=== PATIENT | female | born 1955 | race Caucasian/White ===

== ENCOUNTER 2023-11-07 20:07 | Emergency (ER) | payer OTHER, SELFPAY ==
[2023-11-07 20:10] VITALS: BP 170/90
--- NOTE | 2023-11-07 20:32 | ED.GENMED ---
History of Present Illness
General
Chief Complaint: Abdominal Pain
Source: patient
Exam Limitations: none
Time Seen by Provider: 11/07/23 20:31
Nursing documentation reviewed up to this point in time: agreed with
Travel History
Have you had any contact with someone who has COVID-19?: No
Do you have any symptoms of coronavirus? Fever > 100 degrees, chills, cough, shortness of breath, sore throat, loss of taste or smell, muscle aches, or headache?: No
History of Present Illness
History of Present Illness:
68-year-old female with history of HTN, hysterectomy, kidney donor, ruptured ectopic presents stating sudden onset mid abdominal pain while cleaning at home yesterday. The pain has been constant but waxes and wanes with spasms at times. The pain
is now 8/10. She is felt extremely nauseous with dry heaves. No diarrhea or constipation. She went to urgent care and they sent her here for evaluation.
She had negative COVID and flu at urgent care.
Review of Systems
Review of Systems
Allergies reviewed?: Yes
All Other Systems: ROS reviewed and negative except as documented in HPI and ROS
Constitutional: Denies fever
Respiratory: Denies trouble breathing
Cardiac: Denies chest pain
ABD/GI: Reports abdominal pain, nausea and anorexia; Denies vomiting or constipated
: Denies dysuria, frequency, flank pain, difficulty voiding or urgency
Musculoskeletal: Reports no symptoms
Skin: Reports no symptoms
Neurological: Reports no symptoms
Phy Exam
Physical Exam
Physical Exam:
GENERAL: No acute distress. A&Ox3.
CONSTITUTIONAL: Afebrile.
EYES: Clear, conjunctivae normal
ENMT: moist mucus membranes, Pharynx nl
RESPIRATORY: Regular respirations, nonlabored, lungs clear.
CARDIOVASCULAR: Regular rate and rhythm, no murmurs, no rubs.
GI: Soft, periumbilical tenderness to palpation, normal BS
MUSCULOSKELETAL: Moves with ease. Well perfused.
SKIN: Warm, dry, pink
PSYCH: Normal mood and affect. Well kept, interactive and appropriate
NEUROLOGIC: Awake, alert and oriented. No focal neurological deficits
Course
Orders/Labs/Results
Orders:
Orders
11/07/23 20:36
CT Abd/Pel (IV only)-[facility] only Urgent
Comment:
Reason For Exam: mid abdminal pain, nausea, retching
11/07/23 20:37
0.9% Sodium Chloride 1000 ml [Nss] 1,000 ml IV BOLUS
HYDROmorphone [Dilaudid] 1 mg IV NOW STA
Ondansetron Injectable [Zofran] 4 mg IV NOW STA
11/07/23 20:53
Complete Blood Count/With Diff Urgent
Comprehensive Metabolic Panel Urgent
Lipase Urgent
11/07/23 22:28
Urinalysis Reflex To Culture Urgent
Date Specimen was Collected: 11/07/23
Time Specimen was Collected: 20:47
Urine Microscopic Reflex Cult Urgent
11/07/23 23:03
Amoxicillin 875 mg/Clav 125 mg [Augmentin 875 mg/125 mg] 1 tablet PO NOW STA
Ketorolac [Toradol] 15 mg IV NOW STA
Ondansetron Injectable [Zofran] 4 mg IV NOW STA
Abnormal Lab Results
11/07/23 11/07/23
20:53 22:28
MCH 32.1 H pg
(27.0-31.0)
Absolute Neuts (auto) 8.5 H 10^3/uL
(1.4-6.5)
Absolute Monos (auto) 0.8 H 10^3/uL
(0.1-0.6)
Neutrophils % 80.9 H %
(42.2-75.2)
Lymphocytes % 11.1 L %
(20.5-51.1)
Glucose 127 H mg/dl
(70-99)
Urine Ketones 1+ A
(Negative)
Leukocyte Esterase Rfl Trace A
(Negative)
Urine Bacteria (Reflex) Few A
(Negative)
11/07/23 20:53
11/07/23 20:53
Vital Signs
Initial and Last Documented VS:
Initial Vital Signs
Temp Pulse Resp BP Pulse Ox
99.1 F 90 20 170/90 95
11/07/23 20:10 11/07/23 20:10 11/07/23 20:10 11/07/23 20:10 11/07/23 20:10
Last Documented Vital Signs
Temp Pulse Resp BP Pulse Ox
99.1 F 77 18 137/76 94
11/07/23 20:10 11/07/23 23:16 11/07/23 23:16 11/07/23 23:16 11/07/23 23:16
MDM/Problems Addressed
Differential Diagnosis Includes:
constipation, obstruction, diverticulitis, colitis, hernia
MDM/Problems Addressed:
68-year-old female with history of HTN, hysterectomy, kidney donor, ruptured ectopic presents stating sudden onset mid abdominal pain while cleaning at home yesterday. The pain has been constant but waxes and wanes with spasms at times. The pain
is now 8/10. She is felt extremely nauseous with dry heaves. No diarrhea or constipation. She went to urgent care and they sent her here for evaluation.
She had negative COVID and flu at urgent care.
Afebrle, NAD
11/07/2023 2201 PM
CBC normal
CMP normal
Lipase normal
UA normal
11/07/[address] abdomen pelvis with IV only contrast radiology report read: IMPRESSION: In the left posterior pelvis, CT findings compatible with diverticulitis involving the sigmoid colon. No evidence of abscess. No evidence of free intraperitoneal air.
Follow-up imaging with CT or colonoscopy after treatment is generally recommended to exclude underlying neoplasia, depending on recent colonoscopy history.
In the right lobe of the liver, low-density lesion which most likely represents hemangioma but is not completely characterized. Consider follow-up imaging with ultrasound of the abdomen with attention to the liver. Alternatively, CT or MRI of the
abdomen without and with contrast could be performed.
Bony degenerative changes as described.
Discussed findings with patient
Prescription for Augmentin sent to her pharmacy
Prescription for [place] and Zofran sent to her pharmacy
Referred to GI for follow-up
Pt ambulated out with normal gait upon discharge
*Critical Care Note
Total Time (30-74mins, 75-104mins- exclusive of procedures): Not Applicable
ED Attending Note
-
Portions of this chart may have been created with voice recognition software.� Occasional wrong word or��sound alike� substitutions may have occurred due to the inherent limitations of voice recognition software.
Discharge Plan
Departure
Patient Disposition: Home (Routine Discharge)
Date of Disposition: 11/07/23
Time of Disposition: 23:08
Patient with high blood pressure during this ER visit?: No
Condition: Good
Discharge Problem:
Diverticulitis
Instructions: Clear Liquid Diet, Diverticulitis (DC)
Prescriptions:
New
ondansetron 4 mg tablet,disintegrating
4 mg PO Q8H PRN (Reason: nausea and vomiting) 4 Days Qty: 10 0RF
amoxicillin-pot clavulanate 875-125 mg tablet
1 tab PO BID Qty: 19 0RF
hydrocodone-acetaminophen 5-325 mg tablet
1 tab PO Q6H PRN (Reason: Pain) Qty: 5 0RF
Referrals:
Álvaro Duncan MD [Active] - Next open appointment
Raciel Barron CRNP [Family Provider] -
Activity Restrictions/Additional Instructions:
As we discussed, you have diverticulitis. I sent a prescription to your pharmacy for Zofran for nausea, [place] for significant pain, and Augmentin antibiotic.
Call the GI doctors office Friday morning and make a follow-up appointment.
Return here immediately for worsening abdominal pain, bloody stools, fever above 100.5 or with shaking chills or feeling sicker in any way
You also have an incidental small lesion on the liver which is most likely nothing worrisome but the radiologist recommends a follow-up ultrasound or CAT scan or MRI of the abdomen, please discuss with your primary doctor.
Interventions
Interventions:
*Risk Screen - Suicide Last Done: 11/07/23 20:10
*General Assessment Last Done: 11/07/23 20:10
*Neglect/Abuse Screening Last Done: 11/07/23 20:10
ED- Fall Risk Assessment Last Done: 11/07/23 23:15
*ED COVID-19 Vaccine History Last Done: 11/07/23 23:15
*Nursing Disposition Last Done: 11/07/23 23:20
DX-Qdgvcb-Erwejzeezm Assessment Last Done: 11/07/23 21:05
Discharge Date and Time
Discharge Date/Time: 11/07/23 23:20
[2023-11-07] MEDS: ZOFRAN 4 MG IV ×2 (20:54→23:12)
[2023-11-07] MEDS: NSS 1000 IV (20:54)
[2023-11-07] MEDS: DILAUDID 1 MG IV (20:55)
[2023-11-07 21:05] LABS: % Basophils 0.3 % (0-2); % Eosinophils 0.1 % (0-6); % Immature Granulocytes 0.2 % (0-0.5); % Lymphocytes 11.1 % (20.5-51.1); % Monocytes 7.4 % (1.7-9.3); % Neutrophils 80.9 % (42.2-75.2); Absolute Lymphocytes 1.2 10^3/uL (1.2-3.4); Absolute Monocytes 0.8 10^3/uL (0.1-0.6); Absolute Neutrophils 8.5 10^3/uL (1.4-6.5); Hematocrit 41.1 % (37.0-47.0); Hemoglobin 14.2 g/dL (12.0-16.0); Mean Corp Hgb Conc. 34.5 g/dL (33.0-37.0); Mean Corpuscular Hgb 32.1 pg (27.0-31.0); Mean Corpuscular Volume 92.8 fL (81.0-99.0); Mean Platelet Volume 10.1 fL (7.4-10.4); Nucleated Red Blood Cells % 0 %; Platelet Count 247 10^3/uL (130-400); Red Blood Cell Count 4.43 10^6/uL (4.20-5.40); Red Cell Dist. Width 12.9 % (11.5-14.5); White Blood Cell Count 10.5 10^3/uL (4.8-10.8)
[2023-11-07 21:19] LABS: ALT (SGPT) 24 U/L (0-35); AST (SGOT) 24 U/L (14-36); Albumin 4.3 g/dl (3.5-5.0); Alkaline Phosphatase 76 U/L (38-126); Blood Urea Nitrogen 16 mg/dl (7-17); Calcium 9.4 mg/dl (8.4-10.2); Carbon Dioxide 23 mmol/L (22-30); Chloride 107 mmol/L (98-107); Glucose 127 mg/dl (70-99); Lipase 134 U/L (23-300); Potassium 4.2 mmol/L (3.5-5.1); Sodium 136 mmol/L (135-145); Total Bilirubin 0.9 mg/dl (0.2-1.3); Total Protein 6.7 g/dl (6.3-8.2); eGFR > 60.00
[2023-11-07 22:38] LABS: Urine Albumin Negative (Neg - Trace); Urine Bilirubin Negative (Negative); Urine Character Clear (Clear); Urine Color Yellow; Urine Glucose Negative (Negative); Urine Ketone 1+ (Negative); Urine Leukocyte Trace (Negative); Urine Nitrite Negative (Negative); Urine Occult Blood Negative (Negative); Urine Urobilinogen Negative (Neg - 1+); Urine pH 6.5 (5.0-9.0)
[2023-11-07 22:45] LABS: Urine Bacteria Few (Negative); Urine Red Blood Cell 0-2 /HPF (0-2)
[2023-11-07] MEDS: AUGMENTIN 875 MG/125 MG 1 TABLET PO (23:11)
[2023-11-07] MEDS: TORADOL 15 MG IV (23:12)
[2023-11-07 23:16] VITALS: BP 137/76
== END 2023-11-07 23:20 | disposition home or self-care (01) ==
LOC: EMR 20:07
PROVIDERS: Registered Nurse; EMERGENCY PHYSICIAN Emergency Medicine; FAMILY PHYSICIAN Nurse Practitioner Family
DX: R10.9 Unspecified abdominal pain (principal); I10 Essential (primary) hypertension
CPT/HCPCS: 99284; 96374; 96375; 96361; 74177; 80053; 81003; 81015; 83690; 85025; Q9967

== ENCOUNTER → 2024-12-20 14:23 | Outpatient (REF) | payer OTHER, SELFPAY | LOC: RCS 14:23 | PROVIDERS: ATTENDING PHYSICIAN Internal Medicine Cardiovascular Disease; FAMILY PHYSICIAN Nurse Practitioner Family | DX: R00.2 Palpitations (principal); I49.3 Ventricular premature depolarization; R07.89 Other chest pain; R42 Dizziness and giddiness | CPT/HCPCS: 93017 ==

== ENCOUNTER → 2024-12-23 07:16 | Outpatient (REF) | payer OTHER, SELFPAY | LOC: HWRCS 07:16 | PROVIDERS: ATTENDING PHYSICIAN Internal Medicine Cardiovascular Disease; FAMILY PHYSICIAN Nurse Practitioner Family | DX: R00.2 Palpitations (principal); I49.3 Ventricular premature depolarization; R07.89 Other chest pain; R42 Dizziness and giddiness | CPT/HCPCS: 93306 ==